=== PATIENT | female | born 1955 | race Two or more races ===

== ENCOUNTER 2017-12-16 07:01 | Emergency (ER) | payer OTHER ==
[~2017-12-16] VITALS: Ht 167.6 cm; Wt 77.1 kg
--- NOTE | 2017-12-16 07:06 | NUR ---
PT BB NEIGHBOR FROM HOME C/C OF SHARP/PRESSURE LIKE CP CONTINOUS AND RADIATING TO NECK AND BILATERAL EXTREMITIES SINCE 399. PT NOTED TO BE FATIGUED, COOL, PALE, DIAPHORETIC. PT STATES +N/V. SKIN PALE AND COOL TO TOUCH. PT STATES SHE IS DIZZY. PT NOTED TO BE IN MILD DISTRESS. RESP EVEN AND UNLABORED. PT PLACED ON CONTINOUS MANAGER GRANT AND POX, MONITOR SHOWING TACHYCARDIA 112BPM. PT SAFETY AND COMFORT MEASURES IN PLACE. MD BEDSIDE FOR EVAL. EMT BEDSIDE FOR EKG. BLOOD SPECIMEN COLLECTED AND SENT TO LAB. WILL CONTINUE TO MONITOR PT.
[2017-12-16] MEDS ORDERED: HEPARIN SODIUM, PORCINE 5000 UNITS/1 ML VIAL ONE ×2 (07:21→07:32)
--- NOTE | 2017-12-16 07:21 | NUR ---
SPOKE TO ANGIE RAMIREZ RN AT [facility] [phone], EKG AND FACE SHEET FAXED TO [phone]. CODE STEMI ACTIVATED.
[2017-12-16] MEDS ORDERED: ASPIRIN 81 MG TAB.CHEW ONE (07:22)
[2017-12-16] MEDS ORDERED: HEPARIN SODIUM, PORCINE 5000 UNITS/1 ML VIAL IV ONE (07:30)
[2017-12-16] MEDS ORDERED: ASPIRIN 81 MG TAB.CHEW PO ONE (07:30)
--- NOTE | 2017-12-16 07:35 | NUR ---
CALL BACK FROM DR SIERRA,SPOKE WITH DR COTO AND ACCEPTED TX
[2017-12-16 07:38] VITALS: BP 136/66
--- NOTE | 2017-12-16 07:41 | NUR ---
REPORT GIVEN TO LEAH FLOOD FOR CHRISTOPHER
[2017-12-16 07:50] LABS: BASOPHILS # (AUTO) 0.1 /CMM (0.0-0.2); BASOPHILS % (AUTO) 0.5 % (0.0-2.0); EOSINOPHILS % (AUTO) 2.4 % (0.0-6.0); HEMATOCRIT 42 % (33-45); HEMOGLOBIN 13.8 g/dL (11.5-14.8); LYMPHOCYTES # (AUTO) 3.2 /CMM (0.8-4.8); LYMPHOCYTES % (AUTO) 30.5 % (20.0-44.0); MEAN CORPUSCULAR HEMOGLOBIN 31 PG (26.0-33.0); MEAN CORPUSCULAR HGB CONC 33 g/dl (31.0-36.0); MEAN CORPUSCULAR VOLUME 94 fL (82-100); MONOCYTES # (AUTO) 0.4 /CMM (0.1-1.30); MONOCYTES % (AUTO) 3.8 % (2.0-12.0); NEUTROPHILS # (AUTO) 6.6 /CMM (1.8-8.9); NEUTROPHILS % (AUTO) 62.8 % (43.0-81.0); PLATELET COUNT (AUTO) 302 /CMM (150-450); RED BLOOD CELL COUNT(AUTO) 4.48 MIL/uL (4.0-5.2); WHITE BLOOD COUNT (AUTO) 10.4 K/uL (4.3-11.0)
[2017-12-16] MEDS ORDERED: MORPHINE SULFATE INJ 2 MG/ML DISP.SYRIN ONE (07:57)
[2017-12-16 07:58] LABS: CALCIUM, SERUM 9.2 mg/dL (8.5-10.1); CREATININE 0.8 mg/dL (0.6-1.3); POTASSIUM 3.4 mmol/L (3.5-5.1)
--- NOTE | 2017-12-16 08:01 | NUR ---
Dr Casrto verbally ordered morphine 2mg ivp LAC 18g
[2017-12-16 08:04] LABS: ALBUMIN 3.7 g/dL (3.4-5.0); BILIRUBIN,DIRECT 0.1 mg/dL (0.0-0.2); BILIRUBIN,TOTAL 0.5 mg/dL (0.2-1.0); TOTAL PROTEIN, SERUM 7.4 g/dL (6.4-8.2)
[2017-12-16 08:06] LABS: TROPONIN I 3.79 ng/mL (0.00-0.056)
[2017-12-16 08:08] LABS: INR 0.93 (0.87-1.13)
--- NOTE | 2017-12-16 08:14 | NUR ---
Report given to ALS transport team. Patient is transported to [facility].
[2017-12-16] MEDS ORDERED: MORPHINE SULFATE INJ 2 MG/ML DISP.SYRIN IV ONE (08:30)
== END 2017-12-16 08:18 | disposition short-term general hospital (02) ==
LOC: ER 07:03
DX: I21.19 ST elevation (STEMI) myocardial infarction involving other coronary artery of inferior wall (principal)
CPT/HCPCS: 36415; 71045-TC; 80048-TC; 80076-TC; 84484-TC; 85025-TC; 85730-TC; A4606; J1644; J2270; Z7610

== ENCOUNTER 2022-10-28 12:13 | Outpatient (CLI) | payer SELFPAY | END 2022-10-28 23:59 | disposition home or self-care (01) | LOC: WOU 12:13 | PROVIDERS: ATTEND Specialist | DX: Z86.73 Personal history of transient ischemic attack (TIA), and cerebral infarction without residual deficits (principal); I25.10 Atherosclerotic heart disease of native coronary artery without angina pectoris; Z79.01 Long term (current) use of anticoagulants; Z79.82 Long term (current) use of aspirin | CPT/HCPCS: G0463 ==